=== PATIENT | female | born 1940 | race African-American/Black ===

== ENCOUNTER 2018-06-18 23:37 | Emergency (ER) | payer MEDICARE ==
--- NOTE | 2018-06-18 23:57 | RADIOLOGY REPORT (SQ) ---
EXAM DESCRIPTION: CT HEAD WITHOUT IV CONTRAST COMPLETED DATE/TME: 06/18/2018 23:38 CLINICAL HISTORY: 77 years Female, stroke alert COMPARISON: None. TECHNIQUE: No contrast. Coronal and sagittal reformat. This exam was performed according to our departmental dose-optimization program, which includes automated exposure control, adjustment of the mA and/or kV according to patient size and/or use of iterative reconstruction technique. FINDINGS: No hemorrhage. No mass, mass effect, or midline shift. Small focal hypoattenuation/encephalomalacia pattern of the left frontoparietal deep white matter, including the watershed zone of the left middle cerebral artery and left lenticulostriate arteries. Mild ex vacuo enlargement of the left lateral ventricle. Brain and extra-axial structures appear otherwise intact. 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 No hemorrhage.
--- NOTE | 2018-06-19 00:01 | RADIOLOGY REPORT (SQ) ---
EXAM DESCRIPTION: XR CHEST 1 VIEW COMPLETED DATE/TME: 06/18/2018 23:38 CLINICAL HISTORY: 77 years Female, stroke alert COMPARISON: None. NUMBER OF VIEWS/TECHNIQUE: 1/AP FINDINGS: Adequate lung volume, clear parenchyma, normal cardiac silhouette, left cardiac stimulator with leads, sternotomy, cardiac valve prosthesis, and intact bony thorax. IMPRESSION: No acute cardiopulmonary findings.
[2018-06-19 00:04] LABS: ABSOLUTE BASOPHILS # (AUTO) 0.1 10^3/uL (0.0-0.2); ABSOLUTE EOSINOPHILS # (AUTO) 0.2 10^3/uL (0.0-0.6); ABSOLUTE LYMPHOCYTES (AUTO) 2.1 10^3/uL (0.5-4.7); ABSOLUTE MONOCYTES (AUTO) 1.4 10^3/uL (0.1-1.4); ABSOLUTE NEUT (AUTO) 4.6 10^3/uL (1.7-8.2); BASOPHILS % (AUTO) 0.7 % (0-2); EOSINOPHILS % (AUTO) 2.2 % (0-6); HEMATOCRIT 37.7 % (36.0-47.0); HEMOGLOBIN 12.7 g/dL (12.0-15.5); LYMPHOCYTES % (AUTO) 24.8 % (13-45); MEAN CORPUSCULAR HEMOGLOBIN 28.4 pg (27.0-33.4); MEAN CORPUSCULAR HGB CONC 33.6 g/dL (32.0-36.0); MEAN CORPUSCULAR VOLUME 85 fl (80-97); MONOCYTES % (AUTO) 17.1 % (3-13); PLATELET COUNT 191 10^3/uL (150-450); RED BLOOD COUNT 4.46 10^6/uL (3.72-5.28); RED CELL DISTRIBUTION WIDTH 15.4 % (11.5-14.0); SEGMENTED NEUTROPHILS % (AUTO) 55.2 % (42-78); TOTAL CELLS COUNTED % (AUTO) 100 %; WHITE BLOOD COUNT 8.3 10^3/uL (4.0-10.5)
[2018-06-19 00:11] LABS: PROTHROMBIN TIME 28.2 SEC (11.4-15.4)
[2018-06-19 00:12] LABS: PARTIAL THROMBOPLASTIN TIME 53.8 SEC (23.5-35.8)
[2018-06-19 00:18] LABS: ALANINE AMINOTRANSFERASE 15 U/L (9-52); ALKALINE PHOSPHATASE 72 U/L (38-126); ANION GAP 8 (5-19); ASPARTATE AMINO TRANSFERASE 37 U/L (14-36); BILIRUBIN,DIRECT 0.3 mg/dL (0.0-0.4); BILIRUBIN,TOTAL 0.5 mg/dL (0.2-1.3); BLOOD UREA NITROGEN 23 mg/dL (7-20); CARBON DIOXIDE 28 mmol/L (22-30); CHLORIDE 108 mmol/L (98-107); CREATINE KINASE 96 U/L (30-135); GLUCOSE 98 mg/dL (75-110); POTASSIUM 4.3 mmol/L (3.6-5.0)
[2018-06-19 00:30] LABS: CREATINE KINASE MB 0.42 ng/mL (<4.55); TROPONIN I < 0.012 ng/mL
[2018-06-19] MEDS ORDERED: ONDANSETRON HCL INJ/PF 4 MG/2 ML SDV IV ONE (00:32)
[2018-06-19] MEDS ORDERED: NORMAL SALINE 1000 ML 500 ML IV ONE (00:33)
--- NOTE | 2018-06-19 00:35 | ER Document Report ---
ED General - General Chief Complaint: right sided weakness Stated Complaint: STROKE SYMPTOMS Time Seen by Provider: 06/18/18 23:43 Notes: Patient is a 77 year old female with a past medical history of hypertension, atrial fibrillation currently anticoagulated on Xarelto, hyperlipidemia, and diabetes who presents by EMS with concerns of right-sided weakness. The patient apparently had an episode of emesis and thereafter was noted to be weak on the right side. EMS was contacted and also noted that she had a right-sided facial droop and right-sided weakness. She was subsequently transported to the hospital. In route to the hospital her symptoms apparently resolved. At time of arrival the patient denies any specific complaints stating she just feels weak all over. She apparently has had 2-3 TIAs in the span of the last several years and is already apparently had the appropriate workup and management for this condition. She denies any headache, chest pain, localizing weakness, numbness, confusion, abdominal pain but does note that she continues to feel somewhat nauseated. She states that this does feel somewhat similar to when she had a TIA in the past. She is visiting from out of town and therefore has been unable to contact her general doctor regarding today's concerns. TRAVEL OUTSIDE OF THE [place] IN LAST 30 DAYS: No - Related Data Allergies/Adverse Reactions: No Known Allergies Allergy (Unverified 06/19/18 00:02) Past Medical History - General Information source: Patient, Relative, Emergency Med Personnel - Social History Smoking Status: Never Smoker Frequency of alcohol use: None Drug Abuse: None Lives with: Family Family History: Reviewed & Not Pertinent Review of Systems - Review of Systems Notes: Constitutional: Negative for fever. HENT: Negative for sore throat. Eyes: Negative for visual changes. Cardiovascular: Negative for chest pain. Respiratory: Negative for shortness of breath. Gastrointestinal: Negative for abdominal pain, positive for nausea and vomiting Genitourinary: Negative for dysuria. Musculoskeletal: Negative for back pain. Skin: Negative for rash. Neurological: Negative for headaches, positive right-sided weakness now resolved 10 point ROS negative except as marked above and in HPI. Physical Exam - Vital signs Vitals: Resp 13 06/18/18 23:53 Interpretation: Normal Notes: PHYSICAL EXAMINATION: GENERAL: Well-appearing, well-nourished and in no acute distress. HEAD: Atraumatic, normocephalic. EYES: Pupils equal round and reactive to light, extraocular movements intact, sclera anicteric, conjunctiva are normal. ENT: nares patent, oropharynx clear without exudates. Moist mucous membranes. NECK: Normal range of motion, supple without lymphadenopathy LUNGS: Breath sounds clear to auscultation bilaterally and equal. No wheezes rales or rhonchi. HEART: Regular rate and rhythm, 2 out of 6 systolic ejection murmur ABDOMEN: Soft, nontender, normoactive bowel sounds. No guarding, no rebound. No masses appreciated. EXTREMITIES: Normal range of motion, no pitting or edema. No cyanosis. NEUROLOGICAL: Face symmetric. Tongue protrudes midline. Extraocular motions intact. Pupils are 2 mm and equally reactive. Normal speech. 5 out of 5 strength in both the distal and proximal upper and lower extremities bilaterally. Sensation is grossly intact throughout. Finger to nose testing normal. Pronator drift normal. PSYCH: Normal mood, normal affect. SKIN: Warm, Dry, normal turgor, no rashes or lesions noted. Course - Re-evaluation Re-evalutation: 06/19/18 00:33 Patient presents by EMS with concerns of possible right-sided weakness and an episode of vomiting. At home assessment the patient has no focal neurologic deficits, NIH stroke scale is 0. She appears somewhat globally weak and mildly confused without any lateralization of her symptoms. Patient has a history of recurrent TIAs, currently anticoagulant on Xarelto and does have a history of hypertension, A. fib status post pacemaker placement and quadruple bypass. She denies any specific complaints at the time of my assessment. CT the head does not show any acute infarction. Suspect possible TIA given EMS report that patient did have right-sided weakness on their initial assessment with associated right-sided facial droop. Patient is already on maximal medical therapy and is not from the area. Will obtain labs, provide IV fluids, antiemetics, monitor. 06/19/18 02:35 Patient's repeat neurologic exam remains benign without any focal deficits. Stroke scale remains 0. Patient states she feels much better, no further vomiting, denies any abdominal pain. EKG, troponin normal. Patient and her son at bedside requesting discharge home stating that she feels fine at this time and would like to go home. She is ready on maximum medical therapy for her recurrent TIAs. She has elected to be discharged home and I have requested an outpatient carotid Doppler and if informed family of the need for this study. The patient is already on aspirin and Xarelto. At this time will discharge with return precautions and follow-up recommendations. Verbal discharge instructions given a the bedside and opportunity for questions given. Medication warnings reviewed. Patient is in agreement with this plan and has verbalized understanding of return precautions and the need for primary care follow-up in the next 24-72 hours. - Vital Signs Vital signs: Temp Pulse Resp BP Pulse Ox 98.5 F 75 15 141/74 H 94 06/19/18 02:30 06/19/18 00:05 06/19/18 02:01 06/19/18 02:01 06/19/18 02:01 - Laboratory Result Diagrams: 06/18/18 23:57 06/18/18 23:57 Laboratory results interpreted by me: 06/18/18 06/18/18 06/18/18 23:57 23:57 23:57 RDW 15.4 H Monocytes % 17.1 H PT 28.2 H APTT 53.8 H Chloride 108 H BUN 23 H Creatinine 1.81 H Est GFR ( Amer) 33 L Est GFR (Non-Af Amer) 27 L AST 37 H - Diagnostic Test Radiology reviewed: Image reviewed, Reports reviewed Radiology results interpreted by me: 06/19/18 03:15 CT head: No acute intracranial bleed or mass Chest x-ray: No acute infiltrate - EKG Interpretation by Me Additional EKG results interpreted by me: 06/19/18 03:15 Ventricular paced complexes. Rate 75. Discharge - Discharge Clinical Impression: TIA (transient ischemic attack) Nausea and vomiting Qualifiers: Vomiting type: unspecified Vomiting Intractability: non-intractable Qualified Code(s): R11.2 - Nausea with vomiting, unspecified Condition: Stable Disposition: HOME, SELF-CARE Additional Instructions: You have been seen today for a condition called a transient ischemic attack also known as a TIA. This is a brief period of loss of blood flow to a portion of your brain that has spontaneously resolved. Please continue to take all the medications that your doctor has prescribed. You need also follow-up with your primary care doctor to complete a workup to evaluate for any additional risk factors for having stroke. Please return to the emergency department immediately if you develop any recurrence of your symptoms, weakness, numbness, difficulty speaking, or any other symptoms that are worrisome to you.
[2018-06-19 03:22] VITALS: BP 107/62
--- NOTE | 2018-06-19 07:17 | EKG REPORT ---
SEVERITY:- ABNORMAL ECG - VENTRICULAR-PACED COMPLEXES : Confirmed by: Ej Sherwood MD 19-Jun-2018 07:16:41
== END 2018-06-19 03:22 | disposition home or self-care (01) ==
LOC: EDBD → ER 23:37
DX: R53.1 Weakness (principal); G45.9 Transient cerebral ischemic attack, unspecified; R11.2 Nausea with vomiting, unspecified; I10 Essential (primary) hypertension; I48.91 Unspecified atrial fibrillation; Z79.02 Long term (current) use of antithrombotics/antiplatelets
CPT/HCPCS: 93005; 99285; 96361; 96374; 36415; 82553; 82962; 82550; 85025; 85610; 85730; 80053; 84484; 71045; 70450; 93010; J2405; J7030